=== PATIENT | male | born 1935 | race Caucasian/White ===

== ENCOUNTER → 2018-01-29 08:39 | Outpatient (CLI) | payer MEDICARE, OTHER, SELFPAY ==
--- NOTE | 2018-01-29 | DI.CT.S_ITS ---
PROCEDURE: CT LUMBAR SPINE WO CON INDICATIONS: lumbar spine pain status of lumbar fusion TECHNIQUE: Noncontrast 3 mm thick sections acquired from the T12 level to the sacrum. Sagittal and coronal reformats were constructed. For radiation dose reduction, the following was used: automated exposure control. COMPARISON: [facility], CR, L-SPINE 2-3 VIEWS, 11/28/2007, 15:38. [facility], , L-SPINE 2-3 VIEWS, 12/04/2013, 10:52. FINDINGS: Image quality: Excellent. Bones: No acute fractures can be seen. No suspicious lytic or blastic lesions are seen. Moderate levoconvex lumbar scoliosis is seen. Minimal retrolisthesis is seen at L1-L2, and there is mild retrolisthesis at L2-L3. No definite pars defects are seen. T12-L1: Mild to moderate loss of disc height is seen on the right side. Vacuum disc phenomenon is seen at this level. There is moderate right-sided and minimal left-sided neural foraminal narrowing seen. No significant central canal narrowing is seen. L1-L2: Moderate to severe loss of disc height is seen on the right side. Prominent bridging right-sided endplate osteophytes are seen, as on series 4 image 26. There is moderate to severe right-sided and moderate left-sided neural foraminal narrowing seen. Mild to moderate central canal narrowing is seen. L2-L3: A disc spacer is seen at this level. Mild to moderate loss of disc height is seen. Bridging endplate osteophytes are seen on both sides. Moderate disc bulge is seen. There is at least moderate bilateral neural foraminal narrowing seen. Moderate central canal narrowing is seen. L3-L4: Urvx-fa-wfavssac loss of disc height is seen on the left. Vacuum disc phenomenon is seen at this level. Moderate bilateral neural foraminal narrowing is seen. Moderate central canal narrowing is seen. L4-L5: Mild loss of disc height is seen on the left side. A mild degree of central disc calcification can be seen, as on series 5 image 33. Moderate bilateral neural foraminal narrowing is seen, left worse than right. Mild central canal narrowing is seen. L5-S1: The disc height is relatively well-preserved. Mild generalized disc bulge is seen. Mild bilateral neural foraminal narrowing is seen. The central canal is widely patent. Soft tissues: No retroperitoneal masses or hematomas. There is partial visualization of an aortobiiliac stent graft. The [place] aneurysm sac measures 4 cm transversely. Atherosclerotic calcification is noted. IMPRESSION: Levoconvex scoliosis, with associated degenerative changes. A disc spacer can be seen at the L2-L3 level. Note is made of an aortobiiliac stent graft. Dictated by: Tommie Guo M.D. on 01/29/2018 at 9:42 Approved by: Tommie Guo M.D. on 01/29/2018 at 9:49
== END ==
PROVIDERS: Visit Provider Orthopaedic Surgery Orthopaedic Surgery of the Spine
DX: M41.26 Other idiopathic scoliosis, lumbar region (principal); Z98.1 Arthrodesis status
CPT/HCPCS: 72131

== ENCOUNTER 2019-01-31 20:22 | Emergency (ER) | payer MEDICARE, OTHER, SELFPAY ==
--- NOTE | 2019-01-31 20:30 | DI.RAD.S_ITS ---
PROCEDURE: XR ELBOW RT MIN 3V INDICATIONS: fall TECHNIQUE: 3 views of the elbow were acquired. COMPARISON: None. FINDINGS: Bones: No fractures or dislocations. No suspicious bony lesions. Soft tissues: Mild elbow joint effusion. No suspicious soft tissue calcifications. IMPRESSION: Small effusion. No visualized acute fracture or dislocation. However, if clinical concern and/or pain persist, short interval imaging followup in 7-10 days is recommended, as occult injury cannot be definitively excluded. Dictated by: Diana Segundo M.D. on 01/31/2019 at 21:03 Approved by: Diana Segundo M.D. on 01/31/2019 at 21:04
--- NOTE | 2019-01-31 20:30 | DI.RAD.S_ITS ---
PROCEDURE: XR RIBS RT MIN 3V W CXR 1V INDICATIONS: fall TECHNIQUE: 3 views of the right ribs were acquired, along with a single view chest. COMPARISON: [facility], , CHEST 2 VIEW, 02/27/2013, 15:00. FINDINGS: Surgical changes and devices: Sternal wires are present consistent with previous bypass procedure. Aortoiliac endograft is present. Bones and chest wall: Right anterior eighth and ninth rib fractures are noted. No suspicious bony lesions. Overlying soft tissues appear unremarkable. Lungs and pleura: No pneumothorax. Trace right effusion.. Mediastinum: Mediastinal contours appear normal. Heart size is normal. IMPRESSION: Right rib fractures as above. Trace right effusion Dictated by: Diana Segundo M.D. on 01/31/2019 at 21:00 Approved by: Diana Segundo M.D. on 01/31/2019 at 21:03
[2019-01-31 20:33] VITALS: BP 173/98; PULSE 69; RESP 15; TEMP 36.6; O2SAT 98; BMI 24.6
--- NOTE | 2019-01-31 21:03 | DI.CT.S_ITS ---
PROCEDURE: CT CHEST ABD PEL W CON INDICATIONS: fall off ladder, severe R flank pain, hemoptysis TECHNIQUE: After the administration of intravenous contrast, 5 mm thick sections acquired from the lung apices to the symphysis. 2.5 mm thick coronal and sagittal reformats were acquired. Additional 7 mm thick coronal maximum intensity projection (MIP) reformats acquired through the lungs. Optional 10-minute delayed imaging may be performed from the kidneys to the bladder. For radiation dose reduction, the following was used: automated exposure control, adjustment of mA and/or kV according to patient size. COMPARISON: [facility], CR, XR RIBS RT MIN 3V W CXR 1V, 01/31/2019, 20:42. CT, ABD/PELVIS W/CON (PNL), 03/28/2013, 15:41. [facility], CR, CHEST 2 VIEW, 02/27/2013, 15:00. FINDINGS: Image quality: Excellent. CHEST: Lungs: No pulmonary contusions or lacerations. No acute airspace opacities. No pneumothorax or hemothorax. Central and peripheral airways appear patent and normal in caliber. Right lower lobe pleural thickening with calcifications are again noted without change. Mediastinum: No mediastinal hematomas. Heart size is enlarged. No pericardial effusion. Thoracic aorta demonstrates aneurysmal dilation within the descending portion measuring 4.7 cm with areas of prominent mural thrombus. There is mild aneurysmal dilation of the ascending thoracic aorta measuring 3.9 cm. No mediastinal or hilar adenopathy. Esophagus is normal in caliber. No hiatal hernia. Chest wall: Right posterior eighth and ninth rib fractures. No subcutaneous emphysema. No axillary or supraclavicular adenopathy. Thyroid gland is unremarkable. ABDOMEN: Solid organs: Liver is normal in size, without lacerations. Hepatic cysts are noted. Gallbladder demonstrates multiple dependent stones without wall thickening. Biliary system is non-dilated. Pancreas enhances normally, without transection. Spleen is normal in size and enhancement, without lacerations. No adrenal hematomas. Both kidneys enhance normally, without hydronephrosis or lacerations. Peritoneum and bowel: No free fluid or air. Unenhanced bowel loops demonstrate normal wall thickness and caliber. Nodes and vessels: No retroperitoneal or mesenteric adenopathy. Aorta demonstrates aneurysmal dilation within the infrarenal portion extending to the common iliac arteries. Aortoiliac endograft is present without visualized leak. Prominent calcifications are are present at the origin of the celiac axis as well as superior and inferior mesenteric arteries consistent with high-grade stenosis. Miscellaneous: No ventral hernias. PELVIS: Genitourinary: Bladder wall thickness is normal. Miscellaneous: No inguinal hernias or adenopathy. Bones: Pelvic ring and hip joints appear intact. No vertebral compression fractures. IMPRESSION: 1. Right posterior eighth and ninth rib fractures. Minimal adjacent fluid. No pneumothorax. 2. Aneurysmal dilation of the thoracic aorta as above. 3. Aortoiliac endograft stent without visualized endoleak. The above findings are concordant with preliminary report. Dictated by: Diana Segundo M.D. on 02/01/2019 at 8:34 Approved by: Diana Segundo M.D. on 02/01/2019 at 9:02
[2019-01-31 21:15] VITALS: BP 166/89; PULSE 69; O2SAT 96
[2019-01-31 21:18] LABS: Add Manual Diff / Slide Review NO; Basophils Absolute Auto 0 /uL (0-100); Basophils Percent Auto 0.6 % (0-2); Eosinophils Absolute Auto 100 /uL (0-450); Eosinophils Percent Auto 1.9 % (2-4); Hematocrit 41.2 % (41-53); Hemoglobin 13.9 g/dL (13.5-17.5); Lymphocytes Absolute Auto 1000 /uL (1100-4500); Lymphocytes Percent Auto 14.8 % (25-40); Mean Corpuscular HGB Conc 33.7 % (30-36); Mean Corpuscular Hemoglobin 31.3 PG (26-34); Mean Corpuscular Volume 93.1 fL (80-100); Monocytes Absolute Auto 700 /uL (0-900); Monocytes Percent Auto 9.8 % (3-14); Neutrophils Absolute Auto 5000 /uL (1500-7000); Neutrophils Percent Auto 72.9 % (50-75); Platelet Count 127 X10^3/uL (150-400); Red Blood Cell Count 4.43 X10^6/uL (4.5-5.9); Red Cell Distribution Width 14.5 % (11.6-14.8); White Blood Cell Count 6.9 X10^3/uL (4.5-11.0)
--- NOTE | 2019-01-31 21:19 | ED.FALL ---
HPI - Fall General Chief Complaint: Trauma Stated Complaint: fall from ladder about 4ft, right rib pain Time Seen by Provider: 01/31/19 20:30 Source: patient and family Mode of arrival: ambulatory Limitations: no limitations History of Present Illness HPI Narrative: 84-year-old male nonsmoker presents with his in the chief complaint of right rib and back pain as well as 1 episode of hemoptysis. The patient was on a ladder, approximately 4 ft off the ground when he fell backwards into a shallow [place]. He denies any head or neck pain. He denies any loss of consciousness and has full recall of the event. He states his pain is gradually worsening. He denies any numbness, tingling or weakness. He takes no blood thinners. He was activated as a modified trauma due to nursing preference. MD complaint: fall Onset (ago): hour(s) Fall from: from height (distance) Fall witnessed: yes, by family Place fall occurred: home Loss of consciousness: none Prolonged down time: no Symptoms prior to fall: none Context: tripped/slipped Location of injury: back Related Data Previous Rx's Medication Instructions Recorded lidocaine 1 patch TOP DAILY #30 each 01/31/19 Allergies Allergy/AdvReac Type Severity Reaction Status Date / Time No Known Drug Allergies Allergy Verified 01/31/19 20:33 Review of Systems Constitutional Denies chills, Denies fever(s), Denies lethargy and Denies weakness Eyes Denies change in vision, Denies eye discharge, Denies irritation and Denies loss of vision ENT Ears, Nose, Mouth, and Throat: Denies change in voice, Denies neck pain and Denies sore throat Cardiovascular Denies chest pain, Denies irregular heart rhythm, Denies lightheadedness, Denies palpitations, Denies dyspnea, Denies dyspnea on exertion and Denies orthopnea Respiratory Reports cough, Reports hemoptysis, Reports pain with cough, Denies dyspnea, Denies dyspnea on exertion and Denies wheezing Gastrointestinal Gastrointestinal: Denies abdominal pain, Denies change in bowel habits, Denies diarrhea, Denies nausea and Denies vomiting Genitourinary Denies hematuria, Denies flank pain, Denies urinary incontinence and Denies urinary urgency Musculoskeletal Reports back pain and Denies neck pain Integumentary/Breasts Denies pruritus, Denies erythema, Denies rash and Denies wounds Neurologic Denies confusion, Denies loss of vision and Denies weakness Psychiatric Denies anxiety, Denies confusion, Denies depression, Denies homicidal ideation and Denies suicidal ideation Endocrine Denies palpitations Hematologic/Lymphatic Denies easy bruising Allergic/Immunologic Denies wheezing Exam Narrative Exam Narrative: GENERAL: 84-year-old male appears stated age, clearly uncomfortable and rubbing his back, GCS 15 HEAD: Atraumatic. Normocephalic. No temporal or scalp tenderness. EYES: L Pupil round and reactive, R eye prosthetic. Extraocular motions intact. No scleral icterus. No injection or drainage. ENT: Nose without bleeding, purulent drainage or septal hematoma. Throat without erythema, tonsillar hypertrophy or exudate. Uvula midline. Airway patent. NECK: Trachea midline. No JVD or lymphadenopathy. Supple, nontender, no meningeal signs. CARDIOVASCULAR: Regular rate and rhythm without murmurs, gallops, or rubs. RESPIRATORY: Faint crackles R base GASTROINTESTINAL: Abdomen soft, non-tender, nondistended. No hepato-splenomegaly, or palpable masses. No guarding. EXTREMITIES: No clubbing, cyanosis, or edema. No joint tenderness, effusion, or edema noted. BACK: R posterior rib pain to palpation. No midline tenderness NEURO: AOx3. SKIN: No rash or erythema. Initial Vital Signs Initial Vital Signs: Vital Signs Temperature 97.9 F 01/31/19 20:33 Pulse Rate 69 01/31/19 20:33 Respiratory Rate 15 01/31/19 20:33 Blood Pressure 173/98 H 01/31/19 20:33 Pulse Oximetry 98 01/31/19 20:33 [facility] Social History Smoking Status: Unknown if ever smoked Social History Smoking Status: Unknown if ever smoked Course Orders Ordered: ED Orders 01/31/19 20:30 XR elbow RT min 3V Stat XR ribs RT min 3V w CXR1V Stat 01/31/19 21:03 CT chest abd pel w con Stat 01/31/19 21:10 Basic Metabolic Panel Stat Complete Blood Count AUTO DIFF Stat Prothrombin Time INR Stat Troponin I Stat Vital Signs - 8 hr 01/31/19 20:33 01/31/19 21:15 01/31/19 22:08 Temperature 97.9 F Pulse Rate 69 69 59 L Respiratory Rate 15 18 Blood Pressure 173/98 H Blood Pressure [Right Arm] 166/89 H 159/54 H Pulse Oximetry 98 96 99 01/31/19 22:30 01/31/19 23:01 Temperature Pulse Rate 81 63 Respiratory Rate Blood Pressure Blood Pressure [Right Arm] 169/92 H 169/92 H Pulse Oximetry 96 96 - Fall Lab Data Result diagrams: 01/31/19 21:10 01/31/19 21:10 Lab Results 01/31/19 01/31/19 01/31/19 Range/Units 21:10 21:10 21:10 WBC 6.9 (4.5-11.0) X10^3/uL RBC 4.43 L (4.5-5.9) X10^6/uL Hgb 13.9 (13.5-17.5) g/dL Hct 41.2 (41-53) % MCV 93.1 (80-100) fL MCH 31.3 (26-34) PG MCHC 33.7 (30-36) % RDW 14.5 (11.6-14.8) % Plt Count 127 L (150-400) X10^3/uL Neut % (Auto) 72.9 (50-75) % Lymph % (Auto) 14.8 L (25-40) % [place] % (Auto) 9.8 (3-14) % Eos % (Auto) 1.9 L (2-4) % Baso % (Auto) 0.6 (0-2) % Neut # (Auto) 5000 (1976-9467) /uL Lymph # (Auto) 1000 L (1472-4872) /uL [place] # (Auto) 700 (0-900) /uL Eos # (Auto) 100 (0-450) /uL Baso # (Auto) 0 (0-100) /uL PT 11.9 (10.1-12.7) SECONDS INR 1.0 (0.9-1.3) Sodium 142 (137-145) mmol/L Potassium 4.2 (3.4-5.1) mmol/L Chloride 101 (98-107) mmol/L Carbon Dioxide 31 (22-32) mmol/L BUN 26 H (9-20) mg/dL Creatinine 1.00 (0.66-1.25) mg/dL Estimated GFR > 60.0 (>60) mL/min BUN/Creatinine Ratio 26.0 H (6-22) Glucose 102 (80-110) mg/dL Calcium 8.9 (8.4-10.2) mg/dL Troponin I < 0.012 (0.01-0.034) ng/mL Imaging Data CT scan - chest: Radiologist's impression: Acute right posterior 8th and 9th rib fractures with small amount of subpleural bleb. No pneumothorax MDM Narrative Medical decision making narrative: 84-year-old male with mechanical fall from 4 ft with full recall, denial of head neck pain presents with right posterior rib and back pain. Extensive imaging demonstrates above-stated findings. Labs and vital signs remain unremarkable. Patient alert and oriented with GCS 15. He and had all questions answered to their apparent satisfaction Discharge Plan Departure Patient Disposition: Home Clinical Impression: Multiple rib fractures Qualifiers: Encounter type: initial encounter Fracture type: closed Laterality: right Qualified Code(s): S22.41XA - Multiple fractures of ribs, right side, initial encounter for closed fracture Discharge Date/Time: 01/31/19 23:53 Interventions: ED Discharge Assessment Last Done: 01/31/19 23:52 Instructions: DI for Trauma Activity Restrictions/Additional Instructions: *You have been diagnosed with [ posterior rib fractures ] *What to do: *Take medications as directed: tylenol, motrin and topical lidocaine patches *Follow up with your primary care provider in 2-3 days, call for an appointment. Let them know you were seen in the Emergency Department and that we ask that you be seen in follow up *Return to ER if you should have any new, worsening or concerning symptoms Prescriptions: New lidocaine 5 % adhesive patch,medicated 1 patch TOP DAILY Qty: 30 RF: 0
[2019-01-31 21:26] LABS: Prothrombin Time 11.9 SECONDS (10.1-12.7)
[2019-01-31 21:29] LABS: Blood Urea Nitrogen 26 mg/dL (9-20); Calcium 8.9 mg/dL (8.4-10.2); Carbon Dioxide 31 mmol/L (22-32); Chloride 101 mmol/L (98-107); Estimated Glomerular Filt Rate > 60.0 mL/min (>60); Glucose 102 mg/dL (80-110); HEMOLYSIS < 15 (0-50); Potassium 4.2 mmol/L (3.4-5.1); Sodium 142 mmol/L (137-145)
[2019-01-31 21:41] LABS: Troponin I < 0.012 ng/mL (0.01-0.034)
[2019-01-31 22:08] VITALS: BP 159/54; PULSE 59; RESP 18; O2SAT 99
[2019-01-31 22:30] VITALS: BP 169/92; PULSE 81; O2SAT 96
[2019-01-31 23:01] VITALS: BP 169/92; PULSE 63; O2SAT 96
--- NOTE | 2019-01-31 23:54 | PC.NURSE ---
pt given Incentive Spirometer and instructions
== END 2019-01-31 23:53 | disposition home or self-care (01) ==
PROVIDERS: Emergency Provider Emergency Medicine
DX: S22.41XA Multiple fractures of ribs, right side, initial encounter for closed fracture (principal); W11.XXXA Fall on and from ladder, initial encounter; M79.601 Pain in right arm; Z79.82 Long term (current) use of aspirin
CPT/HCPCS: 36591; 71101; 71260; 73080; 74177; 80048; 84484; 85025; 85610; 99283; 99284

== ENCOUNTER 2019-02-19 12:27 | Emergency (ER) | payer MEDICARE, OTHER, SELFPAY ==
[2019-02-19 12:30] VITALS: BP 178/85; PULSE 66; RESP 22; TEMP 36.3; O2SAT 100; BMI 24.7
--- NOTE | 2019-02-19 12:35 | DI.RAD.S_ITS ---
PROCEDURE: XR RIBS LT 2V INDICATIONS: FAll, Lt rib pain TECHNIQUE: 3 views of the left ribs were acquired. COMPARISON: None. FINDINGS: Surgical changes and devices: Median sternotomy wires are seen. Aortic stent is seen Bones and chest wall: Slightly displaced fracture involving left lateral 10th rib is seen.. No suspicious bony lesions. Overlying soft tissues appear unremarkable. Lungs and pleura: The visualized lung appears clear. No pleural effusions or pneumothorax are visible. Cardiac size is enlarged. Tortuous thoracic aorta is noted. IMPRESSION: Slightly displaced fracture involving left lateral 10th rib. No acute cardiopulmonary pathology. Dictated by: Afshin Peter M.D. on 02/19/2019 at 13:14 Approved by: Afshin Peter M.D. on 02/19/2019 at 13:16
--- NOTE | 2019-02-19 12:52 | ED_ITS ---
HPI - Fall <ROBERT Aranda - Last Filed: 02/19/19 20:45> General Chief Complaint: Fall Stated Complaint: LEFT SIDE PAIN FALL Time Seen by Provider: 02/19/19 12:35 Source: patient Mode of arrival: ambulatory Limitations: no limitations History of Present Illness HPI Narrative: 84-year-old male with history of right-sided rib fractures from a recent fall, presents emergency department today for an additional fall after being unsteady due to the pain of his back and recent rib fractures. His states he fell 2 days ago by the side of the toilet and has been complaining of now left-sided rib pain that is worse with movement and pressure. Pain is a dull aching 4/10 but is better with rest. He has been getting injections in his back due but has recently stopped getting those as they have not been working. Patient denies syncope, dizziness, chest pain, shortness of breath, dysuria, fevers, chills, increasing weakness, malaise, nausea, abdominal pain, vomiting, or change in bowel or bladder habits. MD complaint: fall Onset (ago): day(s) Fall from: standing Fall witnessed: yes, by family Place fall occurred: home Loss of consciousness: none Prolonged down time: no Symptoms prior to fall: none Context: tripped/slipped Location of injury: chest Related Data Home Medications Medication Instructions Recorded Confirmed lisinopril 2.5 mg PO DAILY 02/19/19 02/19/19 rosuvastatin 5 mg PO DAILY 02/19/19 02/19/19 sertraline 25 mg PO DAILY 02/19/19 02/19/19 Previous Rx's Medication Instructions Recorded lidocaine 1 patch TOP DAILY #30 each 01/31/19 lidocaine 1 patch TOP DAILY #30 each 02/19/19 Allergies Allergy/AdvReac Type Severity Reaction Status Date / Time No Known Drug Allergies Allergy Verified 01/31/19 20:33 Review of Systems <ROBERT Aranda - Last Filed: 02/19/19 20:45> Review of Systems REVIEW OF SYSTEMS: GENERAL: Denies fever or chills. HENT: No head trauma. EYES: No double vision or vision loss. CARDIOVASCULAR: No chest pain or syncope. RESPIRATORY: No shortness of breath or cough. GASTROINTESTINAL: No nausea, vomiting, diarrhea, or constipation. GENITOURINARY: No flank pain or dysuria. MUSCULOSKELETAL: Complains of left rib pain, see HPI. INTEGUMENTARY: No rash, lesions, or pruritus. NEURO: No numbness, tingling. PSYCH: No behavior or mood changes. Exam <ROBERT Aranda - Last Filed: 02/19/19 20:45> Initial Vital Signs Initial Vital Signs: Vital Signs Temperature 97.3 F L 02/19/19 12:30 Pulse Rate 66 02/19/19 12:30 Respiratory Rate 22 02/19/19 12:30 Blood Pressure 178/85 H 02/19/19 12:30 Pulse Oximetry 100 02/19/19 12:30 PHYSICAL EXAMINATION: GENERAL: Well groomed, alert, and cooperative. Answers questions promptly and appropriately. Vital signs noted. HENT: Normocephalic, atraumatic. EYES: Symmetrical, sclera white, no periorbital swelling. CARDIOVASCULAR: S1 and S2 sounds normal. Regular rate and rhythm, no murmurs, clicks, or bruits. No pedal edema. RESPIRATORY: Normal respiratory rate, trachea midline, airway patent. No stridor, nasal flaring or accessory muscle use. Lungs are clear in all [place]. ABD: Nontender, nondistended, bowel sounds active. MUSCULOSKELETAL: Patient has unsteady gait, his states this is the norm for him due to back pain and prior rib fractures. Tenderness to palpation of lower left ribs as well as lower right ribs (know multiple fractures to right ribs). Equal tone and mass bilaterally. No spinal tenderness or deformities. EXTREMITIES: CMS intact. No pedal edema. SKIN: Warm, dry, soft, appropriate color for ethnicity. No lesions, rashes, or wounds. NEURO: Alert and Oriented X 3. No sensory deficits. PSYCH: Appropriate affect and mood. <Marin Falcon DO - Last Filed: 02/23/19 04:02> Initial Vital Signs Initial Vital Signs: Vital Signs Temperature 97.3 F L 02/19/19 12:30 Pulse Rate 66 02/19/19 12:30 Respiratory Rate 22 02/19/19 12:30 Blood Pressure 178/85 H 02/19/19 12:30 Pulse Oximetry 100 02/19/19 12:30 PFSH <ROBERT Aranda - Last Filed: 02/19/19 20:45> Medical History No significant medical problems (Acute) Social History Smoking Status: Unknown if ever smoked Social History Smoking Status: Unknown if ever smoked Scores <ROBERT Aranda - Last Filed: 02/19/19 20:45> Nexus Score for C-Spine Focal Neurologic deficit present: No Midline spinal tenderness present: No Altered level of conciousness present: No Intoxication present: No Distracting Injury Present: No Nexus Criteria for C-spine: 0 Course <ROBERT Aranda - Last Filed: 02/19/19 20:45> Course Narrative: I had an extensive discussion with patient and his about the possibility of seeking anesthetic assistant living for the patient if he continues to have these falls. Also discussed to have a conversation with his primary care provider about the possibility of physical therapy for balance. Patient and were receptive to their options. Strict return precautions given and follow-up instructions discussed. Orders Ordered: ED Orders 02/19/19 12:35 XR ribs LT 2V Stat Reevaluation(s) Reevaluation #1: After test results patient was re-evaluated he continued to feel the same without shortness of breath. Consultations Consultation #1: Patient staffed with Dr. Falcon. Vital Signs - 8 hr 02/19/19 14:06 Pulse Rate 75 Blood Pressure 142/108 H Pulse Oximetry 99 <Marin Falcon DO - Last Filed: 02/23/19 04:02> Orders Ordered: ED Orders 02/19/19 12:35 XR ribs LT 2V Stat Vital Signs - 8 hr 02/19/19 14:06 Pulse Rate 75 Blood Pressure 142/108 H Pulse Oximetry 99 MDM - Fall <ROBERT Aranda - Last Filed: 02/19/19 20:45> Medical Records Attestation: I reviewed the patient's medical records. Lab Data Attestation: I reviewed the patient's lab results. Imaging Data Rib XR: Radiologist's impression: [address] [address] XRay Report Signed Patient: Jayy Falcon#: [id number] : 1935Acct:[id number] Age/Sex: 84 / MDate of Service: 02/19/19 Loc: ED Accession Number: [id number] Procedure: XR ribs LT 2V Ordering Provider: Gricelda Hall PROCEDURE: XR RIBS LT 2V INDICATIONS: FAll, Lt rib pain TECHNIQUE: 3 views of the left ribs were acquired. COMPARISON: None. FINDINGS: Surgical changes and devices: Median sternotomy wires are seen. Aortic stent is seen Bones and chest wall: Slightly displaced fracture involving left lateral 10th rib is seen.. No suspicious bony lesions. Overlying soft tissues appear unremarkable. Lungs and pleura: The visualized lung appears clear. No pleural effusions or pneumothorax are visible. Cardiac size is enlarged. Tortuous thoracic aorta is noted. IMPRESSION: Slightly displaced fracture involving left lateral 10th rib. No acute cardiopulmonary pathology. Dictated by: Afshin Peter M.D. on 02/19/2019 at 13:14 Approved by: Afshin Peter M.D. on 02/19/2019 at 13:16 [facility] Narrative Medical decision making narrative: Most likely rib fracture as seen on his chest x-ray. Fall appears to be mechanical due to his balance and the pain from his other rib fractures as per description, lack of evidence of other trauma, lack of other symptoms, and stable vital signs. I am not concerned about head trauma as patient denies hitting his head and there is no evidence of trauma on exam. I suspect that it is difficult for patient to move around due to balance issues and pain, conversation was had about the possibility of assisted living home care. Strict return precautions given and follow-up instructions discussed Discharge Plan Departure Patient Disposition: Home Clinical Impression: Fracture of rib Qualifiers: Encounter type: initial encounter Rib fracture type: single rib Fracture type: closed Laterality: left Qualified Code(s): S22.32XA - Fracture of one rib, left side, initial encounter for closed fracture Discharge Date/Time: 02/19/19 14:10 Interventions: ED Discharge Assessment Last Done: 02/19/19 14:06 Instructions: DI for Rib Fracture, How to Prevent Falls Activity Restrictions/Additional Instructions: Thank you for entrusting me with your care today. As discussed, you have a fracture of your left 10th rib as noted on your x-ray. Please use your incentive spirometer 10 breaths 10 times a day. Follow up with her primary care provider to discuss options such as assisted living if needed and or physical therapy to help with your balance. I prescribed lidocaine patches, as discussed narcotics would be dangerous to use in your situation to control pain. Please continue to use Tylenol as needed. Return to the emergency department if he develops syncope, chest pain, shortness of breath, fevers, or changes in bowel or bladder problems. Prescriptions: New lidocaine 1.8 % adhesive patch,medicated 1 patch TOP DAILY Qty: 30 RF: 0 No Action sertraline 25 mg tablet 25 mg PO DAILY RF: 0 lisinopril 2.5 mg tablet 2.5 mg PO DAILY RF: 0 rosuvastatin 10 mg tablet 5 mg PO DAILY RF: 0 lidocaine 5 % adhesive patch,medicated 1 patch TOP DAILY Qty: 30 RF: 0 <Marin Falcon DO - Last Filed: 02/23/19 04:02> [facility] Attending Giovannaature Attestation: I was immediately available in the department for consultation. Documentation has been reviewed. I agree with assessment and plan.
[2019-02-19 14:06] VITALS: BP 142/108; PULSE 75; O2SAT 99
== END 2019-02-19 14:10 | disposition home or self-care (01) ==
PROVIDERS: Emergency Provider Nurse Practitioner
DX: S22.32XA Fracture of one rib, left side, initial encounter for closed fracture (principal); W19.XXXA Unspecified fall, initial encounter
CPT/HCPCS: 71100; 99282; 99283